=== PATIENT | female | born 1995 | race Caucasian/White ===

== ENCOUNTER 2022-05-04 16:55 | Inpatient (IN) | payer BC, OTHER ==
[~2022-05-04] VITALS: Ht 162.6 cm; Wt 133.4 kg
[2022-05-04 18:48] LABS: HEMOGLOBIN 12.1 gm/dl (12.3-15.3); RED BLOOD COUNT 4.02 M/UL (4.00-5.10); WHITE BLOOD COUNT 13.8 K/UL (4.5-11.0)
[2022-05-04] MEDS ORDERED: METFORMIN ER G500 MG PO (20:20)
[2022-05-04] MEDS ORDERED: LANTUS100 UNIT/1 SQ (20:21)
[2022-05-04] MEDS ORDERED: NOVOLOG100 UNIT/2 SQ (20:22)
[2022-05-04] MEDS ORDERED: OMEPRAZOLE20 MG PO (20:23)
[2022-05-04] MEDS ORDERED: ASPIRIN81 MG PO (20:24)
[2022-05-06] MEDS ORDERED: IBUPROFEN600 MG PO (04:06)
[2022-05-06] MEDS ORDERED: COLACE100 MG PO (04:06)
[2022-05-07] MEDS ORDERED: HYDROCODON-ACE1 EAC4 PO (06:01)
[2022-05-07 06:56] LABS: HEMOGLOBIN 10.7 gm/dl (12.3-15.3)
== END 2022-05-07 18:24 | disposition home or self-care (01) | DRG 807 ==
LOC: GENOP 16:55 → OB 17:40
PROVIDERS: Obstetrics & Gynecology; ADMIT Obstetrics & Gynecology
PROC: 10907ZC Drainage of Amniotic Fluid, Therapeutic from Products of Conception, Via Natural or Artificial Opening (ICD-10-PCS; 2022-05-05)
PROC: 0UH97HZ Insertion of Contraceptive Device into Uterus, Via Natural or Artificial Opening (ICD-10-PCS; 2022-05-05)
PROC: 3E033VJ Introduction of Other Hormone into Peripheral Vein, Percutaneous Approach (ICD-10-PCS; 2022-05-05)
PROC: 4A1H7CZ Monitoring of Products of Conception, Cardiac Rate, Via Natural or Artificial Opening (ICD-10-PCS; 2022-05-05)
PROC: 10H073Z Insertion of Monitoring Electrode into Products of Conception, Via Natural or Artificial Opening (ICD-10-PCS; 2022-05-05)
PROC: 10E0XZZ Delivery of Products of Conception, External Approach (ICD-10-PCS; principal; 2022-05-06)
DX: O24.425 Gestational diabetes mellitus in childbirth, controlled by oral hypoglycemic drugs (principal); Z37.0 Single live birth; O99.214 Obesity complicating childbirth; E66.9 Obesity, unspecified; Z3A.37 37 weeks gestation of pregnancy; O69.81X0 Labor and delivery complicated by cord around neck, without compression, not applicable or unspecified
CPT/HCPCS: 81001; 85014; 85018; 85025; 90707; 90715; J1885; J2405; J2590